=== PATIENT | male | born 1950 | race Caucasian/White ===

== ENCOUNTER 2023-10-25 12:08 | Day surgery (SDC) | payer MEDICARE ==
[2023-10-25 14:08] LABS: #Basophils Less than 0.03 10x3/uL (0.0-0.2); %Basophils 0.2 % (0.0-1.0); %Eosinophils 2.3 % (0.0-10.0); %Lymphocytes 8.5 % (21.0-51.0); %Monocytes 9.2 % (0.0-10.0); Hematocrit 35.7 % (42.0-52.0); Hemoglobin 11.7 g/dL (14.0-18.0); Mean Corpuscular HGB CONC 32.8 g/dL (32.0-36.0); Mean Corpuscular Hemoglobin 29.3 pg (27.0-31.0); Mean Corpuscular Volume 89.3 fL (78.0-98.0); Mean Platelet Volume 10.4 fL (7.4-10.4); Platelet Count 235 10x3/uL (130-400); RBC Distribution Width 13.6 % (11.5-14.5)
[2023-10-25 14:28] LABS: Anion Gap 13 mmol/L (10-20); BUN (Urea Nitrogen) 17 mg/dL (8.4-25.7); Calc. Creatinine Clearance 0 mL/min (70-130); Calcium 9.6 mg/dL (7.8-10.44); Carbon Dioxide 24 mmol/L (23-31); Chloride 106 mmol/L (98-107); Estimated GFR 91; Glucose 87 mg/dL (83-110); Potassium 3.3 mmol/L (3.5-5.1); Sodium 140 mmol/L (136-145)
[2023-10-25] MEDS ORDERED: CEFAZOLIN 1 GM VIAL ONE (14:47)
[2023-10-25] MEDS ORDERED: Gentamicin 80 MG/2 ML VIAL ONE (14:47)
[2023-10-25] MEDS ORDERED: CEFAZOLIN 2 GM VIAL ONE (14:47)
== END 2023-10-25 16:43 | disposition home or self-care (01) ==
LOC: SDC 12:08
PROVIDERS: ATTEND Internal Medicine Cardiovascular Disease
PROC: 0JPT0PZ Removal of Cardiac Rhythm Related Device from Trunk Subcutaneous Tissue and Fascia, Open Approach (ICD-10-PCS; principal; 2023-10-25)
PROC: 0JH606Z Insertion of Pacemaker, Dual Chamber into Chest Subcutaneous Tissue and Fascia, Open Approach (ICD-10-PCS; 2023-10-25)
DX: R55 Syncope and collapse (principal); N40.1 Benign prostatic hyperplasia with lower urinary tract symptoms; I10 Essential (primary) hypertension; E78.5 Hyperlipidemia, unspecified; M19.90 Unspecified osteoarthritis, unspecified site; E03.9 Hypothyroidism, unspecified; I49.5 Sick sinus syndrome; R60.9 Edema, unspecified; Z79.899 Other long term (current) drug therapy; Z79.890 Hormone replacement therapy; Z88.5 Allergy status to narcotic agent; Z88.8 Allergy status to other drugs, medicaments and biological substances
CPT/HCPCS: 33228; 80048; 85025; C1785; J0690; J1580

== ENCOUNTER 2023-11-08 12:56 | Emergency (ER) | payer MEDICARE ==
[2023-11-08 13:41] LABS: Bacteria/HPF 2+ HPF (None Seen); Bilirubin Negative (Negative); Blood, Urine Negative (Negative); CAUTI Indications for Culture Dysuria,urgency,freq; Clarity Clear (Clear); Glucose, Urine (Dipstick) Normal (Negative); Ketone, Urine Negative (Negative); Leukocyte 250 Leu/uL (Negative); Nitrite 2+ (Negative); Protein, Urine (Dipstick) 10 mg/dL (Neg-Trace); RBC/HPF 0-3 HPF (0-3); Specific Gravity, Urine 1.019 (1.002-1.036); Squamous Epithelial 0-3 HPF (0-3); Urobilinogen Normal mg/dL (Less than 2); WBC/HPF 21-50 HPF (0-3); pH, Urine 5.5 (5.0-9.0)
[2023-11-08 13:43] LABS: Urine Culture Reflex Yes Yes
[2023-11-08 14:50] LABS: #Basophils 0.05 10x3/uL (0.0-0.2); %Basophils 0.9 % (0.0-1.0); %Eosinophils 2.3 % (0.0-10.0); %Lymphocytes 21.2 % (21.0-51.0); %Monocytes 10.6 % (0.0-10.0); %Neutrophils 64.6 % (42.0-75.0); Hematocrit 39.7 % (42.0-52.0); Hemoglobin 12.7 g/dL (14.0-18.0); Mean Corpuscular Hemoglobin 28.8 pg (27.0-31.0); Mean Platelet Volume 9.8 fL (7.4-10.4); Platelet Count 437 10x3/uL (130-400); RBC Distribution Width 13.5 % (11.5-14.5); Red Blood Cell (RBC) Count 4.41 mill/uL (4.70-6.10)
[2023-11-08 15:13] LABS: ALT (SGPT) 19 U/L (8-55); AST (SGOT) 20 U/L (5-34); Albumin 3.6 g/dL (3.4-4.8); Alkaline Phosphatase 132 U/L (40-110); Anion Gap 11 mmol/L (10-20); BUN (Urea Nitrogen) 17 mg/dL (8.4-25.7); Bilirubin, Total 0.5 mg/dL (0.2-1.2); Calc. Creatinine Clearance 0 mL/min (70-130); Carbon Dioxide 27 mmol/L (23-31); Chloride 106 mmol/L (98-107); Estimated GFR 67; Globulin 3.9 g/dL (2.4-3.5); Glucose 106 mg/dL (83-110); Potassium 3.9 mmol/L (3.5-5.1); Protein, Total 7.5 g/dL (5.8-8.1); Sodium 140 mmol/L (136-145)
[2023-11-08] MEDS ORDERED: Lidocaine 1% MPF 2 ML VIAL ONE (16:52)
[2023-11-08] MEDS ORDERED: cefTRIAXone (ROCEPHIN) 1 GM VIAL ONE (16:52)
== END 2023-11-08 18:52 | disposition home or self-care (01) ==
LOC: ERS 12:56
DX: N39.0 Urinary tract infection, site not specified (principal); N45.3 Epididymo-orchitis; I10 Essential (primary) hypertension; Z55.6 Problems related to health literacy
CPT/HCPCS: 36415; 74176; 76870; 80053; 81001; 83605; 85025; 87077; 87086; 87186; 93976; 96372; J0696

== ENCOUNTER 2024-02-06 12:03 | Outpatient (CLI) | payer MEDICARE | END 2024-02-06 12:04 | disposition home or self-care (01) | LOC: RAD 12:03 | PROVIDERS: ATTEND Physician Assistant | DX: R06.02 Shortness of breath (principal) | CPT/HCPCS: 71046; 80048; 85025; 85610; 85730 ==

== ENCOUNTER 2025-04-27 12:10 | Outpatient (CLI) | payer MEDICARE ==
[~2025-04-27 12:10] MED LIST: Iopamidol 370 76% 100 ML VIAL ONE
[2025-04-27 12:37] LABS: Estimated GFR - POC 70.0
== END 2025-04-27 12:11 | disposition home or self-care (01) ==
LOC: CT 12:10
PROVIDERS: ATTEND Physician Assistant
DX: I71.20 Thoracic aortic aneurysm, without rupture, unspecified (principal); I71.40 Abdominal aortic aneurysm, without rupture, unspecified; I72.3 Aneurysm of iliac artery; J98.6 Disorders of diaphragm
CPT/HCPCS: 36415; 71275; 74175; 82565